=== PATIENT | female | born 1990 | race Caucasian/White ===

== ENCOUNTER 2016-12-09 11:50 | Outpatient (CLI) | payer MEDICAID ==
[2016-12-09] MEDS ORDERED: LACTATED RINGERS 500 ML IV ONE (15:19)
== END 2016-12-09 15:43 | disposition home or self-care (01) ==
LOC: LAB 11:50 → TRG 14:12 → LAB 15:43
PROVIDERS: ATTEND Advanced Practice Midwife
DX: O36.0130 Maternal care for anti-D [Rh] antibodies, third trimester, not applicable or unspecified (principal); Z3A.29 29 weeks gestation of pregnancy
CPT/HCPCS: 86850; 86900; 86901; 96372; J2790

== ENCOUNTER 2016-12-28 13:56 | Outpatient (CLI) | payer MEDICAID ==
[2016-12-28] MEDS ORDERED: LACTATED RINGERS 500 ML IV ONE ×2 (14:28→15:00)
[2016-12-28 15:02] LABS: Bacteria,Urine 1+ /HPF (Negative); Bilirubin,Urine NEG (Negative); Blood,Urine NEG (Negative); Ketones,Urine 80 mg/dL (Negative); Leukocyte Esterase,Urine NEG (Negative); Mucus,Urine 3+ /HPF; Nitrite,Urine NEG (Negative); Urobilinogen,Urine < 2.0 mg/dL (<2.0)
[2016-12-28 15:35] VITALS: BP 115/70
[2016-12-28 15:47] LABS: Basophils % (Auto) 0.8 % (0.0-1.8); Eosinophils % (Auto) 1.7 % (0.0-4.3); Hematocrit 29.4 % (30.3-42.9); Hemoglobin 9.9 gm/dl (10.1-14.3); Mean Corpuscular HGB Conc 34 % (30-34); Mean Corpuscular Hemoglobin 32 pg (28-32); Mean Corpuscular Volume 94 fl (79-97); Platelet Count 239 K/mm3 (140-440); Red Blood Count 3.13 M/mm3 (3.65-5.03); Red Cell Distribution Width 13.5 % (13.2-15.2); White Blood Count 7.5 K/mm3 (4.5-11.0)
[2016-12-28] MEDS ORDERED: ROBITUSSIN AC PO ONE (17:47)
== END 2016-12-28 18:20 | disposition home or self-care (01) ==
LOC: TRG 13:56
PROVIDERS: ATTEND Obstetrics & Gynecology
DX: O47.03 False labor before 37 completed weeks of gestation, third trimester (principal); Z3A.31 31 weeks gestation of pregnancy
CPT/HCPCS: 36415; 59025; 81001; 85025; 96360; 96361; J7120

== ENCOUNTER 2016-12-30 11:55 | Outpatient (CLI) | payer MEDICAID ==
[2016-12-30] MEDS ORDERED: LACTATED RINGERS 500 ML IV ONE (12:57)
[2016-12-30] MEDS ORDERED: LACTATED RINGERS 1,000 ML ONE (12:59)
[2016-12-30 14:06] VITALS: BP 105/57
[2016-12-30] MEDS ORDERED: CELESTONE SOLUSPAN IM ONE (15:27)
[2016-12-30 16:10] LABS: Bilirubin,Urine NEG (Negative); Blood,Urine NEG (Negative); Ketones,Urine 80 mg/dL (Negative); Leukocyte Esterase,Urine NEG (Negative); Mucus,Urine FEW /HPF; Nitrite,Urine NEG (Negative); Protein,Urine <15 mg/dL mg/dL (Negative); Urobilinogen,Urine < 2.0 mg/dL (<2.0)
== END 2016-12-30 15:50 | disposition home or self-care (01) ==
LOC: TRG 11:55
PROVIDERS: ATTEND Obstetrics & Gynecology
DX: O47.03 False labor before 37 completed weeks of gestation, third trimester (principal); Z3A.32 32 weeks gestation of pregnancy
CPT/HCPCS: 59025; 81001; 96372; J0702; J7120

== ENCOUNTER 2016-12-31 16:38 | Outpatient (CLI) | payer MEDICAID ==
[2016-12-31] MEDS ORDERED: CELESTONE SOLUSPAN IM ONE (16:44)
[2016-12-31] MEDS ORDERED: LACTATED RINGERS 500 ML IV ONE (16:45)
== END 2016-12-31 17:04 | disposition home or self-care (01) ==
LOC: TRG 16:38
PROVIDERS: ATTEND Obstetrics & Gynecology
DX: O47.03 False labor before 37 completed weeks of gestation, third trimester (principal); Z3A.32 32 weeks gestation of pregnancy
CPT/HCPCS: 96372; J7120

== ENCOUNTER 2017-01-01 17:41 | Outpatient (CLI) | payer MEDICAID ==
[2017-01-01 18:20] VITALS: BP 100/60
[2017-01-01] MEDS ORDERED: LACTATED RINGERS 500 ML IV ONE (19:33)
[2017-01-01] MEDS ORDERED: LACTATED RINGERS 1,000 ML ONE (19:42)
[2017-01-01 20:26] LABS: Bacteria,Urine 1+ /HPF (Negative); Bilirubin,Urine NEG (Negative); Blood,Urine NEG (Negative); Ketones,Urine NEG (Negative); Leukocyte Esterase,Urine NEG (Negative); Mucus,Urine FEW /HPF; Nitrite,Urine NEG (Negative); Protein,Urine <15 mg/dL mg/dL (Negative); RBC,Urine < 1.0 /HPF (0.0-6.0); Urobilinogen,Urine < 2.0 mg/dL (<2.0); WBC,Urine < 1.0 /HPF (0.0-6.0)
[2017-01-01] MEDS ORDERED: PROCARDIA*For Tocolysis only PO ONE (21:52)
--- NOTE | 2017-01-02 08:34 | Ultrasound Report ---
OB LIMITED INDICATION: Evaluate cervical length. COMPARISON: 07/10/2016 TECHNIQUE: Transabdominal grayscale ultrasound with Doppler interrogation. Gestation: Jiménez Position: Breech Placenta: Anterior Placental Grade: 0 Heart Rate: 164 BPM Cervical length: 1.5 cm (Normal > 3 cm)
== END 2017-01-01 22:05 | disposition home or self-care (01) ==
LOC: TRG 17:41 → LD 18:31 → UNDOADMIN 18:31 → TRG 22:05
PROVIDERS: ATTEND Obstetrics & Gynecology
DX: O60.03 Preterm labor without delivery, third trimester (principal); O36.8130 Decreased fetal movements, third trimester, not applicable or unspecified; Z3A.32 32 weeks gestation of pregnancy
CPT/HCPCS: 36415; 59025; 76815; 81001; 82731; 96360; J7120

== ENCOUNTER 2017-02-17 22:30 | Outpatient (CLI) | payer MEDICAID ==
[2017-02-17 23:10] VITALS: BP 129/83
--- NOTE | 2017-02-18 13:23 | Ultrasound Report ---
BIOPHYSICAL PROFILE: 02/17/17 22:30:00 CLINICAL: Well Being FINDINGS: The biophysical profile was scored as followin - breathing movements 2 - movements 2 - posture and tone 2 - Qualitative amniotic fluid volume 8 - TOTAL SCORE OF POSSIBLE 8 Heart Rate (bpm) = 135 IMPRESSION: Normal study
--- NOTE | 2017-02-18 13:26 | Ultrasound Report ---
OB ULTRASOUND LIMITED: 02/17/17 CLINICAL: well being. Leaking of fluid. FINDINGS: Gestation: Jiménez Position: Cephalic. Amniotic Fluid: Normal [place] = 15.5 cm Placenta: Anterior Placental Grade: I Heart Rate: 135 BPM IMPRESSION: Single live intrauterine fetus at 38 weeks based on clinical dating. Normal amniotic fluid.
== END 2017-02-17 23:59 | disposition home or self-care (01) ==
LOC: TRG 22:30
PROVIDERS: ATTEND Obstetrics & Gynecology
DX: O42.92 Full-term premature rupture of membranes, unspecified as to length of time between rupture and onset of labor (principal); O62.9 Abnormality of forces of labor, unspecified; Z3A.38 38 weeks gestation of pregnancy
CPT/HCPCS: 76815; 76819

== ENCOUNTER 2017-02-19 03:57 | Inpatient (IN) | payer MEDICAID ==
[2017-02-19] MEDS ORDERED: LACTATED RINGERS 1,000 ML ONE (04:38)
[2017-02-19] MEDS ORDERED: POLYCILLIN/NS 2 GM/100 ML 2 GM/100 ML BAG IV ONE ×2 (04:38→04:40)
[2017-02-19] MEDS ORDERED: XYLOCAINE 2% INFILTRATI ONE (04:40)
[2017-02-19] MEDS ORDERED: BRETHINE SUB-Q PRN (04:40)
[2017-02-19] MEDS ORDERED: MINERAL OIL PO PRN (04:40)
[2017-02-19] MEDS ORDERED: BRETHINE IVP PRN (04:40)
[2017-02-19] MEDS ORDERED: ePHEDrine SULFATE IV PRN (04:40)
[2017-02-19] MEDS ORDERED: LACTATED RINGERS 1,000 ML IV SCH (05:00)
[2017-02-19] MEDS ORDERED: PITOCin/NS 20 UNIT/1000ML DRIP 20 UNITS/1,000 ML BAG IV SCH (05:00)
[2017-02-19] MEDS: STADOL IV PRN ×2 (05:33→08:56)
[2017-02-19 05:42] LABS: Hematocrit 36.5 % (30.3-42.9); Hemoglobin 12.4 gm/dl (10.1-14.3); Mean Corpuscular HGB Conc 34 % (30-34); Mean Corpuscular Hemoglobin 32 pg (28-32); Mean Corpuscular Volume 94 fl (79-97); Platelet Count 212 K/mm3 (140-440); Red Blood Count 3.89 M/mm3 (3.65-5.03); Red Cell Distribution Width 14.7 % (13.2-15.2)
[2017-02-19] MEDS ORDERED: TYLENOL ONE (05:56)
[2017-02-19] MEDS ORDERED: TYLENOL PO ONE (06:30)
[2017-02-19 06:55] LABS: Alanine Aminotransferase 9 units/L (7-56); Lactate Dehydrogenase 160 units/L (91-180); Uric Acid 6.2 mg/dL (3.5-7.6)
[2017-02-19] MEDS ORDERED: POLYCILLIN/NS 1 GM/50 ML 1 GM/50 ML BAG IV SCH (09:00)
[2017-02-19 09:16] LABS: Bilirubin,Urine NEG (Negative); Blood,Urine LG (Negative); Ketones,Urine NEG (Negative); Leukocyte Esterase,Urine MOD (Negative); Nitrite,Urine NEG (Negative); Protein,Urine <15 mg/dL mg/dL (Negative); RBC,Urine < 1.0 /HPF (0.0-6.0); Urobilinogen,Urine < 2.0 mg/dL (<2.0)
[2017-02-19] MEDS: PITOCin/NS 30 UNIT/500ML 30 UNITS/500 ML BAG IV SCH ×3 (11:06→12:37)
--- NOTE | 2017-02-19 11:18 | History and Physical Report ---
History of Present Illness Date of examination: 02/19/17 Date of admission: 02/19/17 05:02 Chief complaint: Intense labor Pains and My water broke History of present illness: Early entry to care, Co-managed with [facility] due to poor weight gain, Smoker, and Short Cx. RH neg (received Rhogam). Past History Past Medical History: no pertinent history Past Surgical History: no surgical history [employer] History: herpes Family/Genetic History: other (Hyperthyroidism: mother, son) Social history: single - Obstetrical History Expected Date of Delivery: 03/02/17 Actual Gestation: 38 Week(s) 3 Day(s) : 4 Para: 1 Hx # Term Pregnancies: 1 Spontaneous Abortions: 2 Number of Living Children: 1 #1 Infant Gender: Female year: Birthweight: 2.892 kg Method of Delivery: Vaginal Gestational age at delivery: Complications: none Medications and Allergies Allergies Allergy/AdvReac Type Severity Reaction Status Date / Time No Known Allergies Allergy Verified 02/04/16 12:27 Home Medications Medication Instructions Recorded Confirmed Last Taken Type Ondansetron [Zofran TAB] 4 mg PO Q8HR PRN #14 tablet 07/10/16 02/19/17 02/18/17 17:00 Rx Pnv95/Ferrous Fumarate/FA 1 tab PO DAILY 07/10/16 02/19/17 02/18/17 17:00 History [ Caplet] Pnv95/Ferrous Fumarate/FA 1 each PO QDAY #31 tablet 07/10/16 02/19/17 02/18/17 17:00 Rx [Prenavite Tablet] Acetaminophen/Codeine [Tylenol 1 tab PO Q6H PRN #10 tab 07/18/16 02/19/17 Unknown Rx /Codeine # 3 tab] Penicillin Vk [Veetids TAB] 250 mg PO QID #40 tablet 07/18/16 02/19/17 Unknown Rx Active Meds: Active Medications Butorphanol Tartrate (Stadol) 2 mg IV Q2H PRN PRN Reason: Pain , Severe (7-10) Last Admin: 02/19/17 08:56 Dose: 2 mg Lactated Ringer's (Lactated Ringers) 1,000 mls @ 125 mls/hr IV DIRECT DAVEY Last Admin: 02/19/17 05:30 Dose: 125 mls/hr Oxytocin/Sodium Chloride (Pitocin/Ns 20 Unit/1000ml Drip) 20 units in 1,000 mls @ 125 mls/hr IV DIRECT DAVEY Ampicillin Sodium (Polycillin/Ns 1 Gm/50 Ml) 1 gm in 50 mls @ 100 mls/hr IV Q4H DAVEY PRN Reason: Protocol Last Admin: 02/19/17 09:00 Dose: 100 mls/hr Oxytocin/Sodium Chloride (Pitocin/Ns 30 Unit/500ml) 30 units in 500 mls @ 2 mls /hr IV TITR DAVEY; 2 MILLIUNITS/MIN PRN Reason: Protocol Last Admin: 02/19/17 11:06 Dose: 4 milliunits/min, 4 mls/hr Mineral Oil (Mineral Oil) 30 ml PO QHS PRN PRN Reason: Constipation Review of Systems All systems: negative - Vital Signs Vital signs: Vital Signs BP 183/103 02/19/17 03:57 Temp Pulse Resp BP Pulse Ox 98.9 F 82 18 152/86 02/19/17 08:57 02/19/17 11:07 02/19/17 08:57 02/19/17 11:07 - Physical Exam Breasts: Positive: normal Cardiovascular: Regular rate Lungs: Positive: Clear to auscultation, Normal air movement Abdomen: Positive: normal appearance, soft, normal bowel sounds Genitourinary (Female): Positive: normal external genitalia, normal perenium Uterus: Positive: enlarged - Obstetrical FHR: category 1 Uterine Contraction Monitor Mode: External Cervical Dilatation: 7 Cervical Effacement Percentage: 100 station: 0 Uterine Contraction Frequency (min): 4-7 Uterine Contraction Pattern: Regular Uterine Tone Measurement Phase: Contraction Uterine Contraction Intensity: Moderate Results Result Diagrams: 02/19/17 04:50 02/19/17 06:12 Abnormal lab results 02/19/17 02/19/17 02/19/17 Range/Units 04:50 06:12 08:30 WBC 17.0 H (4.5-11.0) K/mm3 Creatinine 0.4 L (0.7-1.2) mg/dL Ur Specific [place] 1.002 L (1.003-1.030) All other labs normal. Assessment and Plan A: IUP @ 38 3/7 Weeks Category I Tracing Active Labor GBS Positive P: Admit to L&D per routine orders Pitocin Augmentation GBs Prophylaxis
[2017-02-19] MEDS ORDERED: MINERAL OIL ONE (11:59)
[2017-02-19] MEDS ORDERED: SUBLIMAZE ONE (12:26)
[2017-02-19] MEDS ORDERED: SUBLIMAZE IV ONE (12:31)
[2017-02-19] MEDS ORDERED: MINERAL OIL TOPICAL LIGHT TP PRN (12:54)
[2017-02-19] MEDS ORDERED: CYTOTEC ONE (13:13)
[2017-02-19] MEDS ORDERED: CYTOTEC PR ONE (13:33)
[2017-02-19] MEDS ORDERED: MILK OF MAGNESIA PO PRN (13:34)
[2017-02-19] MEDS ORDERED: LANSINOH TP PRN (13:34)
[2017-02-19] MEDS ORDERED: ZOFRAN IV PRN (13:34)
[2017-02-19] MEDS ORDERED: PHENERGAN PR PRN (13:34)
[2017-02-19] MEDS ORDERED: DULCOLAX PR PRN (13:34)
[2017-02-19] MEDS ORDERED: TUCKS PAD TP PRN (13:34)
[2017-02-19] MEDS ORDERED: BENADRYL PO PRN (13:34)
[2017-02-19] MEDS ORDERED: DERMOPLAST TP PRN (13:34)
[2017-02-19] MEDS ORDERED: PHENERGAN PO PRN (13:34)
--- NOTE | 2017-02-19 13:43 | Procedure Note ---
OB Delivery Note - Delivery Date of Delivery: 02/19/17 (1302) Surgeon: MARCOS PRECIADO Estimated blood loss: other (350) - Vaginal Delivery presentation: vertex Delivery position: OA Delivery induction: none Delivery augmentation: pitocin Delivery monitor: external FHT, external uterine Route of delivery: Delivery placenta: manual Delivery cord: 3 umbilical vessels Episiotomy: none Delivery laceration: none Anesthesia: none Delivery comments: of a live 6'1 female infant over a intact perineum under IV pain control with Apgars of 8 and 9 at 1302 on 02/19/2017. Infant directly to maternal abd/ chest, skin to skin contact. Very short cord. Manual extraction of placenta with one attempt due to Placenta delivering in segments with Starr side presenting at 1320. Upon manual exploration, the uterus palpates empty. Fundus is firm and midline located 4 below the U. Lochia is scant. Delayed cord clamping and cutting. Cord cut by the father of the baby. GBS Prophylaxis x2. - A at 1 minute: 8 at 5 minutes: 9 Infant Gender: Female (6'1)
[2017-02-19] MEDS ORDERED: SODIUM CHLORIDE FLUSH SYRINGE 10 ML IV NR (14:00)
[2017-02-19] MEDS: NORCO 5/325 PO PRN ×2 (16:18→22:33)
[2017-02-19] MEDS: MOTRIN PO SCH (16:18)
[2017-02-20] MEDS: MOTRIN PO SCH ×3 (02:05→17:42)
[2017-02-20 04:34] LABS: Hematocrit 30.3 % (30.3-42.9)
[2017-02-20] MEDS: NORCO 5/325 PO PRN ×3 (05:47→20:11)
[2017-02-20] MEDS ORDERED: BOOSTRIX IM ONE (06:00)
[2017-02-20] MEDS ORDERED: PRENATAL VITAMIN PO SCH (10:00)
--- NOTE | 2017-02-20 10:17 | Progress Note ---
Assessment and Plan PPD #1 - stable P: Discharge home today Subjective - Subjective Date of service: 02/20/17 Principal diagnosis: Patient reports: appetite normal [place]: doing well Objective - Vital Signs Latest vital signs: Vital Signs Temp Pulse Pulse Pulse Resp BP BP 02/20/17 08:48 98.1 F 76 20 02/19/17 20:00 98.3 F 71 18 127/71 02/19/17 15:56 98.9 F 72 20 129/66 02/19/17 14:34 85 159/68 02/19/17 14:30 85 18 159/68 02/19/17 14:19 81 171/75 02/19/17 14:10 83 18 155/78 02/19/17 14:09 83 155/78 02/19/17 13:50 86 18 155/80 02/19/17 13:49 86 155/80 02/19/17 13:35 81 18 150/78 02/19/17 13:34 81 150/78 02/19/17 11:35 76 140/85 02/19/17 11:07 82 152/86 BP 02/20/17 08:48 124/74 02/19/17 20:00 02/19/17 15:56 02/19/17 14:34 02/19/17 14:30 02/19/17 14:19 02/19/17 14:10 02/19/17 14:09 02/19/17 13:50 02/19/17 13:49 02/19/17 13:35 02/19/17 13:34 02/19/17 11:35 02/19/17 11:07 Intake and Output 02/19/17 02/20/17 02/20/17 22:59 06:59 14:59 Intake Total 480 260 Output Total 400 Balance 80 260 Intake: Intake, Free Water 480 260 Output: Urine 400 Void 400 Other: Total, Output Amount 400 # Voids Void 1 2 - Exam Breasts: Present: deferred Cardiovascular: Present: Regular rate Lungs: Present: Clear to auscultation Abdomen: Present: soft Vulva: both: normal Uterus: Present: fundal height below umbilicus Extremities: Present: normal Deep Tendon Reflex Grade: Normal +2 - Labs Labs: Abnormal lab results 02/20/17 Range/Units 03:53 Hgb 10.0 L (10.1-14.3) gm/dl
--- NOTE | 2017-02-20 10:18 | Discharge Summary ---
Providers - Providers Date of Admission: 02/19/17 05:02 Date of discharge: 02/20/17 Attending physician: RUBÉN WILSON MD Primary care physician: RUBÉN WILSON MD Hospitalization Reason for admission: active labor, rupture of membranes Delivery: Episiotomy: none Laceration: none Other procedures: none complications: none Discharge diagnosis: IUP at term delivered baby: female Condition at discharge: Good Disposition: DISCHARGED TO HOME OR SELFCARE Plan - Provider Discharge Summary Activity: routine, no sex for 6 weeks, no strenuous exercise Diet: routine Additional instructions: [] Smoking cessation referral if applicable(refer to patient education folder for contact #) [] Refer to [facility]'s [facility] Booklet Call your doctor immediately for: * Fever > 100.5 * Heavy vaginal bleeding ( >1 pad per hour) * Severe persistent headache * Shortness of breath * Reddened, hot, painful area to leg or breast * Drainage or odor from incision. * Keep incision clean and dry at all times and follow doctor's instructions regarding bathing/showering - Follow up plan Follow up: [facility] [Provider Group] - 6 Weeks
[2017-02-20] MEDS ORDERED: FLUARIX QUAD 2016-2017(36 MOS+) IM ONE (12:00)
[2017-02-21] MEDS: MOTRIN PO SCH ×2 (00:20→06:15)
[2017-02-21] MEDS: NORCO 5/325 PO PRN (03:07)
[2017-02-21 06:43] VITALS: BP 143/87
== END 2017-02-21 07:30 | disposition home or self-care (01) | DRG 775 ==
LOC: TRG 03:57 → LD 05:02 → OB 15:59
PROVIDERS: ADMIT Obstetrics & Gynecology; ATTEND Obstetrics & Gynecology
PROC: 10E0XZZ Delivery of Products of Conception, External Approach (ICD-10-PCS; principal; 2017-02-19)
PROC: 30233S1 Transfusion of Nonautologous Globulin into Peripheral Vein, Percutaneous Approach (ICD-10-PCS; 2017-02-19)
DX: O99.824 Streptococcus B carrier state complicating childbirth (principal); O26.873 Cervical shortening, third trimester; O99.334 Smoking (tobacco) complicating childbirth; F17.200 Nicotine dependence, unspecified, uncomplicated; Z3A.38 38 weeks gestation of pregnancy; Z37.0 Single live birth
CPT/HCPCS: 36415; 81001; 82565; 83615; 84450; 84460; 84550; 85014; 85018; 85027; 85460; 85461; 86850; 86900; 86901; 90471; 90686; 90715; 99211; A6250; G0008; G0463; J0290; J0595; J2590; J2790; J3010; J7120

== ENCOUNTER 2017-10-27 23:03 | Emergency (ER) | payer SELFPAY ==
[2017-10-27] MEDS ORDERED: MOTRIN ONE (23:38)
[2017-10-27] MEDS ORDERED: MOTRIN PO ONE (23:39)
[2017-10-27 23:41] VITALS: BP 120/80
--- NOTE | 2017-10-28 01:26 | Emergency Department Report ---
ED Laceration HPI - HPI Chief Complaint: Wound/Laceration Stated Complaint: LAC TO RT ELBOW Time Seen by Provider: 10/28/17 00:53 Occurred When: Yesterday Location: Upper Extremity (Rt arm beside elbow) Severity: mild (or/10) Tetanus Status: Up to Date Laceration Symptoms: Yes Pain (right arm beside elbow), No Foreign Body Sensation, No Numbness, No Weakness Other History: Patient here reports that she tripped and fell off steps and injured her right arm beside her elbow.she said she had a cut in its bleeding. Tetanus shot is up-to-date. Pain 4-10 and no medication taken. Pain is worse with movement better with resting. Patient acting very aggressive and appears to be anxious. She denies street to any other parts of her body. She says she slipped and just landed on her elbow. Denies any swelling to elbow. Denies any numbness or tingling. ED Review of Systems ROS: Stated complaint: LAC TO RT ELBOW Other details as noted in HPI Comment: All other systems reviewed and negative Constitutional: no symptoms reported Respiratory: no symptoms reported Cardiovascular: denies: chest pain, palpitations, dyspnea on exertion, orthopnea , edema, syncope, paroxysmal nocturnal dyspnea Gastrointestinal: denies: abdominal pain, nausea, vomiting, diarrhea, constipation Musculoskeletal: arthralgia. denies: back pain, joint swelling, myalgia Skin: other ED Past Medical Hx - Past Medical History Previous Medical History?: No Hx Hypertension: No Hx Congestive Heart Failure: No Hx Diabetes: No Hx Deep Vein Thrombosis: No Hx Renal Disease: No Hx Sickle Cell Disease: No Hx Seizures: No Hx Asthma: No Hx COPD: No Hx HIV: No - Surgical History Past Surgical History?: Yes Additional Surgical History: D&C - Family History Family history: hypertension - Social History Smoking Status: Current Every Day Smoker Substance Use Type: Alcohol - Medications Home Medications: Home Medications Medication Instructions Recorded Confirmed Last Taken Type Ondansetron [Zofran TAB] 4 mg PO Q8HR PRN #14 tablet 07/10/16 02/19/17 02/18/17 17:00 Rx Pnv No.95/Ferrous Fum/Folic AC 1 tab PO DAILY 07/10/16 02/19/17 02/18/17 17:00 History [ Caplet] Pnv No.95/Ferrous Fum/Folic AC 1 each PO QDAY #31 tablet 07/10/16 02/19/1702/18 17:00 Rx [Prenavite Tablet] Acetaminophen/Codeine [Tylenol 1 tab PO Q6H PRN #10 tab 07/18/16 02/19/17 Unknown Rx /Codeine # 3 tab] Penicillin Vk [Veetids TAB] 250 mg PO QID #40 tablet 07/18/16 02/19/17 Unknown Rx Cephalexin [Keflex] 500 mg PO Q8HR 5 Days #15 cap 10/28/17 Unknown Rx Ibuprofen [Motrin] 600 mg PO Q8H PRN 5 Days #15 tablet 10/28/17 Unknown Rx Laceration Physical Exam - Exam General: Vital signs noted. No distress. Alert and acting appropriately. This is a 27-year-old female well-nourished well-developed and nontoxic in appearance. Patient is very anxious. Lungs: Auscultated bilaterally, no rhonchi wheezes or rales. Head: Normocephalic, atraumatic. No abrasion, laceration or contusion. Neck: Full range of motion, no C-spine tenderness. CV: S1, S2. Regular rate rhythm Psych: Anxiety, mild. Laceration Location: Upper Extremity (right arm beside elbow posteriorly) Full Body Front + Back: 1 - TD vaccine is up-to-date Distally ,Right posterior arm 4 cm laceration. Minimal bleeding. Palpated around edges. Laceration Exam: Yes Normal Distal CMS, No Foreign Body, No Exposed Tendon, Vessel, or Nerve, No Tendon Injury ED Course Vital Signs 10/27/17 23:27 Temperature 98.6 F Pulse Rate 120 H Respiratory 20 Rate Blood Pressure 120/80 [Right] O2 Sat by Pulse 97 Oximetry Vital Signs 10/27/17 10/28/17 23:27 02:57 Temperature 98.6 F Pulse Rate 120 H 100 H Respiratory 20 Rate Blood Pressure 120/80 [Right] O2 Sat by Pulse 97 Oximetry - Reevaluation(s) Reevaluation #1: 10/28/17 03:05 Patient given Motrin 800 mg emergency room for pain to right arm after falling. The procedure note for laceration repair. - Laceration /Wound Repair Right Distal Arm Wound Location: upper extremity (RT arm posteriorly) Wound Length (cm): 4 Wound's Depth, Shape: linear Wound Explored: no foreign body removed Irrigated w/ Saline (ccs): 500 Betadine Prep?: Yes Anesthesia: 0.5% Sensorcaine (marcaine) Volume Anesthetic (ccs): 2 Wound Debrided: moderate Wound Repaired With: sutures Suture Size/Type: 3:0, proline Number of Sutures: 8 Layer Closure?: No Sterile Dressing Applied?: Yes ED Medical Decision Making - Medical Decision Making ED course: Post fall with injury to distal rt arm. Patient with 4 cm laceration which was repaired with Prolene sutures. Please refer to procedure note for detailed on laceration repair. pt with mild anxiety that has resolved since her laceration is repaired . Patient discharged home in stable condition with prescription for Motrin and Keflex and to follow up with her primary care in 5 days and return to emergency room or urgent care to have stitches removed in 7-10 days. She voiced understanding of discharge instruction and treatment plan discharge home with her family in stable condition. Critical care attestation.: If time is entered above; I have spent that time in minutes in the direct care of this critically ill patient, excluding procedure time. ED Disposition Clinical Impression: Laceration of upper arm without complication Qualifiers: Encounter type: initial encounter Laterality: right Qualified Code(s): S41.111A - Laceration without foreign body of right upper arm, initial encounter Arthralgia of upper arm Qualifiers: Laterality: right Qualified Code(s): M25.521 - Pain in right elbow Disposition: DC-01 TO HOME OR SELFCARE Is pt being admited?: No Does the pt Need Aspirin: No Condition: Stable Instructions: Suture Care (ED), Laceration (ED), Arthralgia (ED) Additional Instructions: Take antibiotic as prescribed Follow-up with your primary care physician in 5days she do not have a primary care physician follow-up with [facility] Keep affected area clean and dry. Return to the emergency room or urgent care to have sutures removed in 7-10 days Prescriptions: Cephalexin [Keflex] 500 mg PO Q8HR 5 Days #15 cap Ibuprofen [Motrin] 600 mg PO Q8H PRN 5 Days #15 tablet PRN Reason: Pain Referrals: [facility] [Outside] - 11/01/17 return to, emergency room are urgent care [Other] - 7-10 days Forms: Work/School Release Form(ED), Accompanied Note
[2017-10-28] MEDS ORDERED: MARCAINE 0.5% INFILTRATI ONE (01:27)
[2017-10-28] MEDS ORDERED: NACL 0.9% IR ONE (01:27)
== END 2017-10-28 03:21 | disposition home or self-care (01) ==
LOC: ED 23:03
DX: S41.111A Laceration without foreign body of right upper arm, initial encounter (principal); F17.200 Nicotine dependence, unspecified, uncomplicated; W01.0XXA Fall on same level from slipping, tripping and stumbling without subsequent striking against object, initial encounter; Y93.89 Activity, other specified; Y92.89 Other specified places as the place of occurrence of the external cause; Y99.8 Other external cause status

== ENCOUNTER 2018-01-16 11:03 | Emergency (ER) | payer MEDICAID ==
[2018-01-16 11:11] VITALS: BP 103/53
[2018-01-16 11:48] LABS: BUN/Creatinine Ratio 10; Blood Urea Nitrogen 4 mg/dL (7-17); Hematocrit 37.4 % (30.3-42.9); Hemoglobin 12.5 gm/dl (10.1-14.3); Hemolysis Index 3; Mean Corpuscular HGB Conc 34 % (30-34); Mean Corpuscular Hemoglobin 29 pg (28-32); Mean Corpuscular Volume 87 fl (79-97); Platelet Count 263 K/mm3 (140-440); Red Cell Distribution Width 16.4 % (13.2-15.2)
[2018-01-16 11:58] LABS: Bilirubin,Urine NEG (Negative); Blood,Urine NEG (Negative); Color,Urine Yellow (Yellow); Mucus,Urine FEW /HPF; Protein,Urine <15 mg/dL mg/dL (Negative); Urobilinogen,Urine < 2.0 mg/dL (<2.0)
--- NOTE | 2018-01-16 13:14 | Ultrasound Report ---
FINAL REPORT EXAM: US OB TRANSVAGINAL HISTORY: 12weeks preg with vag bleed/pelvic pain TECHNIQUE: Ultrasound evaluation of the gravid uterus PRIORS: 07/10/2016 FINDINGS: A gestational sac is present in the endometrial cavity containing a yolk sac and pole. viability is documented with evidence of cardiac activity. pole crown-rump length: 34.3 mm Gestational Sac Size: 48.4 mm heart rate: 169 beats per minute Average estimated gestational age by ultrasound 10 weeks 3 days Estimated delivery date: 08/11/2018 The uterine echotexture is homogenous and without evidence of mass. Closed cervix. No evidence of left solid ovarian mass. Nonspecific small smoothly marginated solid appearing nodule in right ovary measures 2 cm and may be a corpus luteum. The adnexa are normal. There is no cul-de-sac free fluid. IMPRESSION: Single viable 1st trimester intrauterine with the above parameters Nonspecific smoothly marginated solid-appearing nodule in right ovary may be a corpus luteum
--- NOTE | 2018-01-16 13:18 | Ultrasound Report ---
FINAL REPORT EXAM: US OB < = 14 WEEKS FETUS, TRANSABDOMINAL HISTORY: 12weeks preg with vag bleed/pelvic pain TECHNIQUE: Ultrasound evaluation of the gravid uterus PRIORS: Transvaginal pelvic ultrasound 01/16/2018 FINDINGS: A gestational sac is present in the endometrial cavity containing a yolk sac and pole. viability is documented with evidence of cardiac activity. pole crown-rump length: 34.3 mm Gestational Sac Size: 48.4 mm heart rate: 169 beats per minute Average estimated gestational age by ultrasound 10 weeks 3 days Estimated delivery date: 08/11/2018 The uterine echotexture is homogenous and without evidence of mass. Closed cervix. No evidence of solid ovarian mass. The adnexa are normal. There is no cul-de-sac free fluid. IMPRESSION: Single viable 1st trimester intrauterine with the above parameters
[2018-01-16] MEDS ORDERED: TYLENOL PO ONE (13:41)
--- NOTE | 2018-01-16 14:10 | Emergency Department Report ---
ED Female HPI - General Chief complaint: Vaginal Bleeding Stated complaint: 12 WKS PREG. VAG BLEEDING Time Seen by Provider: 01/16/18 13:34 Source: patient Mode of arrival: Ambulatory Limitations: No Limitations - History of Present Illness Initial comments: This is a 27-year-old female nontoxic, well nourished in appearance, no acute signs of distress presents to the ED with c/o of vaginal spotting that occurred 2 days ago. Patient stated she is currently 12 weeks . Patient denies any heavy vaginal bleeding, abdominal pain, chest pain, short of breath, fever, chills, nausea, vomiting. Patient denies any abdominal pain or cramping. She denies any dysuria, polyuria. Patient denies any allergies or significant past medical history. MD Complaint: vaginal bleeding -: days(s) (2) Severity scale (0 -10): 0 Improves with: none Worsens with: none Are you Now?: Yes Associated Symptoms: vaginal bleeding. denies: vaginal discharge, abdominal pain, nausea/vomiting, fever/chills, headaches, loss of appetite, dysuria, hematuria, rash, seizure, shortness of breath, syncope, weakness - Related Data Home Medications Medication Instructions Recorded Confirmed Last Taken Pnv No.95/Ferrous Fum/Folic AC 1 tab PO DAILY 07/10/16 02/19/17 02/18/17 17:00 [ Caplet] Previous Rx's Medication Instructions Recorded Last Taken Type Ondansetron [Zofran TAB] 4 mg PO Q8HR PRN #14 tablet 07/10/16 02/18/17 17:00 Rx Pnv No.95/Ferrous Fum/Folic AC 1 each PO QDAY #31 tablet 07/10/16 02/18/17 17: 00 Rx [Prenavite Tablet] Acetaminophen/Codeine [Tylenol 1 tab PO Q6H PRN #10 tab 07/18/16 Unknown Rx /Codeine # 3 tab] Penicillin Vk [Veetids TAB] 250 mg PO QID #40 tablet 07/18/16 Unknown Rx Cephalexin [Keflex] 500 mg PO Q8HR 5 Days #15 cap 10/28/17 Unknown Rx Ibuprofen [Motrin] 600 mg PO Q8H PRN 5 Days #15 tablet 10/28/17 Unknown Rx Metoclopramide [Reglan] 10 mg PO TID PRN #20 tab 01/16/18 Unknown Rx Allergies Allergy/AdvReac Type Severity Reaction Status Date / Time No Known Allergies Allergy Verified 02/04/16 12:27 ED Review of Systems ROS: Stated complaint: 12 WKS PREG. VAG BLEEDING Other details as noted in HPI Constitutional: denies: chills, fever Eyes: denies: eye pain, eye discharge, vision change ENT: denies: ear pain, throat pain Respiratory: denies: cough, shortness of breath, wheezing Cardiovascular: denies: chest pain, palpitations Endocrine: no symptoms reported Gastrointestinal: denies: abdominal pain, nausea, diarrhea Genitourinary: denies: urgency, dysuria, discharge Musculoskeletal: denies: back pain, joint swelling, arthralgia Skin: denies: rash, lesions Neurological: denies: headache, weakness, paresthesias Psychiatric: denies: anxiety, depression Hematological/Lymphatic: denies: easy bleeding, easy bruising ED Past Medical Hx - Past Medical History Hx Hypertension: No Hx Congestive Heart Failure: No Hx Diabetes: No Hx Deep Vein Thrombosis: No Hx Renal Disease: No Hx Sickle Cell Disease: No Hx Seizures: No Hx Asthma: No Hx COPD: No Hx HIV: No - Surgical History Additional Surgical History: D&C - Social History Smoking Status: Current Every Day Smoker Substance Use Type: None - Medications Home Medications: Home Medications Medication Instructions Recorded Confirmed Last Taken Type Ondansetron [Zofran TAB] 4 mg PO Q8HR PRN #14 tablet 07/10/16 02/19/17 02/18/17 17:00 Rx Pnv No.95/Ferrous Fum/Folic AC 1 tab PO DAILY 07/10/16 02/19/17 02/18/17 17:00 History [ Caplet] Pnv No.95/Ferrous Fum/Folic AC 1 each PO QDAY #31 tablet 07/10/16 02/19/1702/18 17:00 Rx [Prenavite Tablet] Acetaminophen/Codeine [Tylenol 1 tab PO Q6H PRN #10 tab 07/18/16 02/19/17 Unknown Rx /Codeine # 3 tab] Penicillin Vk [Veetids TAB] 250 mg PO QID #40 tablet 07/18/16 02/19/17 Unknown Rx Cephalexin [Keflex] 500 mg PO Q8HR 5 Days #15 cap 10/28/17 Unknown Rx Ibuprofen [Motrin] 600 mg PO Q8H PRN 5 Days #15 tablet 10/28/17 Unknown Rx Metoclopramide [Reglan] 10 mg PO TID PRN #20 tab 01/16/18 Unknown Rx ED Physical Exam - General Limitations: No Limitations General appearance: alert, in no apparent distress - Head Head exam: Present: atraumatic, normocephalic - Eye Eye exam: Present: normal appearance - ENT ENT exam: Present: mucous membranes moist - Neck Neck exam: Present: normal inspection - Respiratory Respiratory exam: Present: normal lung sounds bilaterally. Absent: respiratory distress, wheezes, rales, rhonchi, stridor, chest wall tenderness, accessory muscle use, decreased breath sounds, prolonged expiratory - Cardiovascular Cardiovascular Exam: Present: regular rate, normal rhythm, normal heart sounds. Absent: bradycardia, tachycardia, irregular rhythm, systolic murmur, diastolic murmur, rubs, gallop - GI/Abdominal GI/Abdominal exam: Present: soft, normal bowel sounds. Absent: distended, tenderness, guarding, rebound, rigid, diminished bowel sounds - Rectal Rectal exam: Present: deferred - Extremities Exam Extremities exam: Present: normal inspection, full ROM, normal capillary refill. Absent: tenderness, pedal edema, joint swelling, calf tenderness - Back Exam Back exam: Present: normal inspection, full ROM. Absent: tenderness, CVA tenderness (R), CVA tenderness (L), muscle spasm, paraspinal tenderness, vertebral tenderness, rash noted - Neurological Exam Neurological exam: Present: alert, oriented X3, CN II-XII intact, normal gait, reflexes normal - Psychiatric Psychiatric exam: Present: normal affect, normal mood - Skin Skin exam: Present: warm, dry, intact, normal color. Absent: rash ED Course Vital Signs 01/16/18 11:07 Temperature 97.8 F Pulse Rate 74 Respiratory 18 Rate Blood Pressure 103/53 O2 Sat by Pulse 100 Oximetry - Reevaluation(s) Reevaluation #1: 01/16/18 14:09 Patient is speaking in full sentences with no signs of distress noted. ED Medical Decision Making - Lab Data Result diagrams: 01/16/18 11:13 01/16/18 11:13 - Medical Decision Making This is a 27-year-old female that presents with vaginal spotting. Patient stable was examined by me and Dr. Rebollar. Labs within normal limits. Ultrasound within normal limits and heartbeat of 169. Patient was notified of the results with normal by the patient. Patient patient does have a PET WALKER appointment tomorrow and I instruct the patient to keep that appointment and follow-up. At time of discharge, the patient does not seem toxic or ill in appearance. No acute signs of distress noted. Patient agrees to discharge treatment plan of care. No further questions noted by the patient. Critical care attestation.: If time is entered above; I have spent that time in minutes in the direct care of this critically ill patient, excluding procedure time. ED Disposition Clinical Impression: Vaginal bleeding Qualifiers: Weeks of gestation: 10 weeks Qualified Code(s): Z3A.10 - 10 weeks gestation of Disposition: DC- TO HOME OR SELFCARE Is pt being admited?: No Does the pt Need Aspirin: No Condition: Stable Instructions: (ED), Metoclopramide (By mouth) Additional Instructions: Follow-up with a PET WALKER tomorrow or if symptoms worsen and continue return to emergency room as soon as possible. Prescriptions: Metoclopramide [Reglan] 10 mg PO TID PRN #20 tab PRN Reason: Nausea Referrals: PRIMARY CARE, [Primary Care Provider] - 3-5 Days RACHEL BERG MD [Staff Physician] - 3-5 Days [facility] [Outside] - 3-5 Days [facility] [Outside] - 3-5 Days Forms: Work/School Release Form(ED)
--- NOTE | 2018-01-16 17:33 | Emergency Department Report ---
Chief Complaint: Vaginal Bleeding Stated Complaint: 12 WKS PREG. VAG BLEEDING Time Seen by Provider: 01/16/18 13:34 - HPI History of Present Illness: The patient is 27-year-old female , who presents for evaluation of abdominal pain and vaginal bleeding. The patient reports 3 days of mild crampy lower abdominal pain associated with mild intermittent vaginal bleeding. The patient denies fever, chills, night sweats, diarrhea, blood in the stool, dark tarry stool, dysuria, hematuria, flank pain, genital discharge, inability to pass flatus. - Exam Vital Signs: Vital Signs 01/16/18 11:07 Temperature 97.8 F Pulse Rate 74 Respiratory 18 Rate Blood Pressure 103/53 O2 Sat by Pulse 100 Oximetry MSE screening note: Focused history and physical exam performed. Due to findings the following was ordered: ED Medical Decision Making - Lab Data Result diagrams: 01/16/18 11:13 01/16/18 11:13 ED Disposition for MSE Clinical Impression: Vaginal bleeding Qualifiers: Weeks of gestation: 10 weeks Qualified Code(s): Z3A.10 - 10 weeks gestation of Disposition: DC-01 TO HOME OR SELFCARE Condition: Stable Instructions: Metoclopramide (By mouth), (ED) Additional Instructions: Follow-up with a RESISTANCE WELDER tomorrow or if symptoms worsen and continue return to emergency room as soon as possible. Prescriptions: Metoclopramide [Reglan] 10 mg PO TID PRN #20 tab PRN Reason: Nausea Referrals: [facility] [Outside] - 3-5 Days [facility] [Outside] - 3-5 Days RACHEL BERG MD [Staff Physician] - 3-5 Days [facility] [Primary Care Provider] - 3-5 Days Forms: Work/School Release Form(ED)
== END 2018-01-16 14:19 | disposition home or self-care (01) ==
LOC: ED 11:03
DX: O46.91 Antepartum hemorrhage, unspecified, first trimester (principal); Z3A.10 10 weeks gestation of pregnancy; O99.331 Smoking (tobacco) complicating pregnancy, first trimester
CPT/HCPCS: 36415; 76801; 76817; 80048; 81001; 84702; 85027; 99284

== ENCOUNTER 2018-01-20 04:48 | Emergency (ER) | payer MEDICAID ==
[2018-01-20 05:15] LABS: Basophils # (Auto) 0.1 K/mm3 (0.0-0.1); Basophils % (Auto) 0.8 % (0.0-1.8); Eosinophils % (Auto) 0.2 % (0.0-4.3); Hematocrit 36.8 % (30.3-42.9); Hemoglobin 12.3 gm/dl (10.1-14.3); Lymphocytes # (Auto) 2.9 K/mm3 (1.2-5.4); Lymphocytes % (Auto) 28.2 % (13.4-35.0); Mean Corpuscular HGB Conc 34 % (30-34); Mean Corpuscular Hemoglobin 29 pg (28-32); Mean Corpuscular Volume 87 fl (79-97); Monocytes # (Auto) 0.4 K/mm3 (0.0-0.8); Monocytes % (Auto) 3.6 % (0.0-7.3); Platelet Count 302 K/mm3 (140-440); Red Blood Count 4.23 M/mm3 (3.65-5.03); Red Cell Distribution Width 16.8 % (13.2-15.2)
[2018-01-20 05:54] LABS: Bilirubin,Urine NEG (Negative); Blood,Urine LG (Negative); Color,Urine Red (Yellow); Protein,Urine <15 mg/dL mg/dL (Negative); RBC,Urine < 1.0 /HPF (0.0-6.0); Urobilinogen,Urine < 2.0 mg/dL (<2.0)
[2018-01-20 07:11] LABS: WBC,Urine < 1.0 /HPF (0.0-6.0)
--- NOTE | 2018-01-20 07:21 | Ultrasound Report ---
FINAL REPORT EXAM: US OB < = 14 WEEKS FETUS HISTORY: vaginal bleeding COMPARISONS: 01/16/2018 FINDINGS: Transabdominal grayscale first-trimester ultrasound Single living intrauterine with recorded cardiac activity of 163 beats per minute and crown-rump length of about 4.3 cm, which corresponds to estimated gestational age of 11 weeks 1 day. Normal appearing yolk sac. A small thin perigestational hemorrhage may be present involving less than 50 percent of the gestational sac surface area. The cervix appears closed and measures around 4 cm in length. Evolving right corpus luteal cyst measures up to 1.7 cm on today's exam. The ovaries are otherwise sonographically unremarkable and measure 3.8 x 2.5 x 1.7 cm on the right and 2.9 x 2.1 x 1.4 cm on the left. IMPRESSION: Single living intrauterine with small perigestational hemorrhage involving less than 50 percent of the gestational sac surface area and concordant dating with prior, as detailed above.
--- NOTE | 2018-01-20 07:22 | Ultrasound Report ---
FINAL REPORT EXAM: US OB TRANSVAGINAL HISTORY: vaginal bleeding COMPARISONS: 01/16/2018 FINDINGS: Transvaginal grayscale, color Doppler and M-mode first-trimester ultrasound Single living intrauterine with recorded cardiac activity of 163 beats per minute and crown-rump length of about 4.3 cm, which corresponds to estimated gestational age of 11 weeks 1 day. Normal appearing yolk sac. A small thin perigestational hemorrhage may be present involving less than 50 percent of the gestational sac surface area. The cervix appears closed and measures around 4 cm in length. Evolving right corpus luteal cyst measures up to 1.7 cm on today's exam. The ovaries are otherwise sonographically unremarkable and measure 3.8 x 2.5 x 1.7 cm on the right and 2.9 x 2.1 x 1.4 cm on the left. IMPRESSION: Single living intrauterine with small perigestational hemorrhage involving less than 50 percent of the gestational sac surface area and concordant dating with prior, as detailed above.
[2018-01-20 10:17] VITALS: BP 119/86
--- NOTE | 2018-01-20 11:20 | Emergency Department Report ---
ED Female HPI - General Chief complaint: Vaginal Bleeding Stated complaint: 3 MONTHS BLEEDING Time Seen by Provider: 01/20/18 11:15 Source: patient Mode of arrival: Ambulatory Limitations: No Limitations - History of Present Illness Initial comments: Patient here with her significant other reports that she is 12 weeks and she goes to light cycle she says she woke up this morning with some abdominal cramps and some vaginal bleeding but she is not bleeding at present. She said cramps was a 6 out of 10 which she is not having at present. Denies any nausea or vomiting. Denies any urinary burning frequency or urgency. Patient says she's had previous ultrasound and it was normal. MD Complaint: vaginal bleeding, pelvic pain -: This morning Location: suprapubic Radiation: non-radiating Severity: moderate Severity scale (0 -10): 6 Quality: cramping Consistency: intermittent Improves with: none Worsens with: none Are you Now?: Yes (12 weeks) Associated Symptoms: vaginal bleeding, abdominal pain. denies: vaginal discharge, nausea/vomiting, fever/chills, headaches, loss of appetite, dysuria, hematuria, rash, seizure, shortness of breath, syncope, weakness - Related Data Sexually active: Yes Home Medications Medication Instructions Recorded Confirmed Last Taken Pnv No.95/Ferrous Fum/Folic AC 1 tab PO DAILY 07/10/16 02/19/17 02/18/17 17:00 [ Caplet] Previous Rx's Medication Instructions Recorded Last Taken Type Ondansetron [Zofran TAB] 4 mg PO Q8HR PRN #14 tablet 07/10/16 02/18/17 17:00 Rx Pnv No.95/Ferrous Fum/Folic AC 1 each PO QDAY #31 tablet 07/10/16 02/18/17 17: 00 Rx [Prenavite Tablet] Acetaminophen/Codeine [Tylenol 1 tab PO Q6H PRN #10 tab 07/18/16 Unknown Rx /Codeine # 3 tab] Penicillin Vk [Veetids TAB] 250 mg PO QID #40 tablet 07/18/16 Unknown Rx Cephalexin [Keflex] 500 mg PO Q8HR 5 Days #15 cap 10/28/17 Unknown Rx Ibuprofen [Motrin] 600 mg PO Q8H PRN 5 Days #15 tablet 10/28/17 Unknown Rx Metoclopramide [Reglan] 10 mg PO TID PRN #20 tab 01/16/18 Unknown Rx Allergies Allergy/AdvReac Type Severity Reaction Status Date / Time No Known Allergies Allergy Verified 02/04/16 12:27 ED Review of Systems ROS: Stated complaint: 3 MONTHS BLEEDING Other details as noted in HPI Comment: All other systems reviewed and negative Constitutional: no symptoms reported Respiratory: no symptoms reported Cardiovascular: denies: chest pain, palpitations, dyspnea on exertion, edema, syncope, paroxysmal nocturnal dyspnea Gastrointestinal: abdominal pain. denies: nausea, vomiting, diarrhea, constipation, hematemesis, melena, hematochezia Genitourinary: other (vaginal bleed at 12 weeks ). denies: dysuria, hematuria Skin: denies: rash Neurological: denies: headache ED Past Medical Hx - Past Medical History Previous Medical History?: No Hx Hypertension: No Hx Congestive Heart Failure: No Hx Diabetes: No Hx Deep Vein Thrombosis: No Hx Renal Disease: No Hx Sickle Cell Disease: No Hx Seizures: No Hx Asthma: No Hx COPD: No Hx HIV: No - Surgical History Past Surgical History?: Yes Additional Surgical History: D&C - Family History Family history: no significant - Social History Smoking Status: Current Every Day Smoker Substance Use Type: None - Medications Home Medications: Home Medications Medication Instructions Recorded Confirmed Last Taken Type Ondansetron [Zofran TAB] 4 mg PO Q8HR PRN #14 tablet 07/10/16 02/19/17 02/18/17 17:00 Rx Pnv No.95/Ferrous Fum/Folic AC 1 tab PO DAILY 07/10/16 02/19/17 02/18/17 17:00 History [ Caplet] Pnv No.95/Ferrous Fum/Folic AC 1 each PO QDAY #31 tablet 07/10/16 02/19/1702/18 17:00 Rx [Prenavite Tablet] Acetaminophen/Codeine [Tylenol 1 tab PO Q6H PRN #10 tab 07/18/16 02/19/17 Unknown Rx /Codeine # 3 tab] Penicillin Vk [Veetids TAB] 250 mg PO QID #40 tablet 07/18/16 02/19/17 Unknown Rx Cephalexin [Keflex] 500 mg PO Q8HR 5 Days #15 cap 10/28/17 Unknown Rx Ibuprofen [Motrin] 600 mg PO Q8H PRN 5 Days #15 tablet 10/28/17 Unknown Rx Metoclopramide [Reglan] 10 mg PO TID PRN #20 tab 01/16/18 Unknown Rx ED Physical Exam - General Limitations: No Limitations General appearance: alert, in no apparent distress - Head Head exam: Present: atraumatic, normocephalic, normal inspection - Eye Eye exam: Present: normal appearance, PERRL, EOMI Pupils: Present: normal accommodation - ENT ENT exam: Present: normal exam, normal orophraynx, mucous membranes moist - Neck Neck exam: Present: normal inspection, full ROM, other (no C-spine tenderness). Absent: tenderness, meningismus, lymphadenopathy, thyromegaly - Respiratory Respiratory exam: Present: normal lung sounds bilaterally. Absent: respiratory distress, chest wall tenderness - Cardiovascular Cardiovascular Exam: Present: normal rhythm, tachycardia, normal heart sounds. Absent: systolic murmur, diastolic murmur - GI/Abdominal GI/Abdominal exam: Present: soft, normal bowel sounds. Absent: distended, tenderness, guarding, rebound, rigid, organomegaly, mass, bruit, pulsatile mass , hernia - External exam: Present: other ( refused pelvic exam.) - Extremities Exam Extremities exam: Present: normal inspection, full ROM, normal capillary refill , other (no no clubbing, cyanosis or edema. +2 pulses all extremities and no neurovascular compromise). Absent: tenderness, pedal edema, joint swelling, calf tenderness - Back Exam Back exam: Present: normal inspection, full ROM, other (ambulates without any difficulties). Absent: tenderness, CVA tenderness (R), CVA tenderness (L), muscle spasm, paraspinal tenderness, vertebral tenderness, rash noted - Neurological Exam Neurological exam: Present: alert, oriented X3, normal gait - Psychiatric Psychiatric exam: Present: normal affect, normal mood - Skin Skin exam: Present: warm, dry, intact, normal color. Absent: rash ED Course Vital Signs 01/20/18 01/20/18 04:55 10:10 Temperature 97.9 F Pulse Rate 112 H 92 H Respiratory 16 Rate Blood Pressure 130/90 119/86 O2 Sat by Pulse 97 100 Oximetry - Reevaluation(s) Reevaluation #1: 01/20/18 11:19 Patient here reports that she was having some vaginal bleeding this morning and she is 12 weeks and goes below cycle. She states she was also having abdominal cramping which has since resolved. I discussed with patient her ultrasound results and told her that she has small juan luis-gestational hemorrhage involving less than 50% of the gestational sac surface area and concordant with dating with prior ultrasound on the 13 did not show this. Patient does not want away and she refused her pelvic or vaginal exam and also refused for me to call [facility] for consult. Patient says she cannot wait anymore and she left without signing AMA even though she agreed that she would find it. ED Medical Decision Making - Lab Data Result diagrams: 01/20/18 05:02 Lab Results 01/20/18 01/20/18 01/20/18 Range/Units 05:01 05:02 05:02 WBC 10.3 (4.5-11.0) K/mm3 RBC 4.23 (3.65-5.03) M/mm3 Hgb 12.3 (10.1-14.3) gm/dl Hct 36.8 (30.3-42.9) % MCV 87 (79-97) fl MCH 29 (28-32) pg MCHC 34 (30-34) % RDW 16.8 H (13.2-15.2) % Plt Count 302 (140-440) K/mm3 Lymph % (Auto) 28.2 (13.4-35.0) % [place] % (Auto) 3.6 (0.0-7.3) % Eos % (Auto) 0.2 (0.0-4.3) % Baso % (Auto) 0.8 (0.0-1.8) % Lymph # 2.9 (1.2-5.4) K/mm3 [place] # 0.4 (0.0-0.8) K/mm3 Eos # 0.0 (0.0-0.4) K/mm3 Baso # 0.1 (0.0-0.1) K/mm3 Seg Neutrophils % 67.2 (40.0-70.0) % Seg Neutrophils # 6.9 (1.8-7.7) K/mm3 HCG, Quant 38523 H (0-4) mIU/mL Urine Color Red (Yellow) Urine Turbidity Clear (Clear) Urine pH 7.0 (5.0-7.0) Ur Specific [place] 1.001 L (1.003-1.030) Urine Protein <15 mg/dl (Negative) mg/dL Urine Glucose (UA) Neg (Negative) mg/dL Urine Ketones Neg (Negative) mg/dL Urine Blood Lg (Negative) Urine Nitrite Neg (Negative) Urine Bilirubin Neg (Negative) Urine Urobilinogen < 2.0 (<2.0) mg/dL Ur Leukocyte Esterase Neg (Negative) Urine WBC (Auto) < 1.0 (0.0-6.0) /HPF Urine RBC (Auto) < 1.0 (0.0-6.0) /HPF Blood Type Antibody Screen 01/20/18 Range/Units 05:02 WBC (4.5-11.0) K/mm3 RBC (3.65-5.03) M/mm3 Hgb (10.1-14.3) gm/dl Hct (30.3-42.9) % MCV (79-97) fl MCH (28-32) pg MCHC (30-34) % RDW (13.2-15.2) % Plt Count (140-440) K/mm3 Lymph % (Auto) (13.4-35.0) % [place] % (Auto) (0.0-7.3) % Eos % (Auto) (0.0-4.3) % Baso % (Auto) (0.0-1.8) % Lymph # (1.2-5.4) K/mm3 [place] # (0.0-0.8) K/mm3 Eos # (0.0-0.4) K/mm3 Baso # (0.0-0.1) K/mm3 Seg Neutrophils % (40.0-70.0) % Seg Neutrophils # (1.8-7.7) K/mm3 HCG, Quant (0-4) mIU/mL Urine Color (Yellow) Urine Turbidity (Clear) Urine pH (5.0-7.0) Ur Specific [place] (1.003-1.030) Urine Protein (Negative) mg/dL Urine Glucose (UA) (Negative) mg/dL Urine Ketones (Negative) mg/dL Urine Blood (Negative) Urine Nitrite (Negative) Urine Bilirubin (Negative) Urine Urobilinogen (<2.0) mg/dL Ur Leukocyte Esterase (Negative) Urine WBC (Auto) (0.0-6.0) /HPF Urine RBC (Auto) (0.0-6.0) /HPF Blood Type O NEGATIVE Antibody Screen Negative - Radiology Data Ultrasound report OB report patient is a 11 week gestation. heartbeat is a 163 bpm. Patient with right corpus Parveen severest otherwise ovaries are normal. Patient was single living intrauterine with small gestational hemorrhage involving less than 50% of the gestational sac surface area and concordant dated with prior. She was here on 01/16/2018 and there was no mention of bleeding on that report. - Medical Decision Making ED course: I reports that she is at 12 weeks and she had vaginal bleeding when she woke up this morning along with some episodic abdominal cramping. She says she is not bleeding now. Records reviewed and patient was here on 01/16/2018 and had ultrasound done which show IUP without any other abnormalities. She did have a corpus in the field status. Today ultrasound show that patient has IUP with positive heartbeat and also per gestational hemorrhage involving less than 50% of the gestational sac. I discussed this with patient in detail and I told her that this is a threatened miscarriage and that her ultrasound from previous did not show juan luis-gestational bleeding. Patient said that she doesn't want to wait and she also less likely and will see her doctor in Monday as she has an appointment. Discussed with her that there is a possibility that she could lose the baby and that I need to call [facility] to let them know and get further instructions. She refused to stay as also she refused to have a pelvic exam done. Patient eloped from the emergency room without signing AMA. CBC, urinalysis is stable. Critical care attestation.: If time is entered above; I have spent that time in minutes in the direct care of this critically ill patient, excluding procedure time. ED Disposition Clinical Impression: Vaginal bleeding affecting early , Threatened in early , Abdominal pain during in first trimester, Corpus luteum cyst, Refusal of care by patient Disposition: Z-07 ELOPED Is pt being admited?: No Does the pt Need Aspirin: No Condition: Stable Forms: AMA Form
== END 2018-01-20 11:33 | disposition left against medical advice (07) ==
LOC: ED 04:48
DX: O20.0 Threatened abortion (principal); O99.331 Smoking (tobacco) complicating pregnancy, first trimester; Z3A.11 11 weeks gestation of pregnancy
CPT/HCPCS: 36415; 76801; 76817; 81001; 84702; 85025; 86850; 86900; 86901; 99284

== ENCOUNTER 2018-05-22 14:38 | Outpatient (CLI) | payer MEDICAID | END 2018-05-22 16:05 | disposition home or self-care (01) | LOC: TRG 14:38 → LABHHL 14:38 → TRG 15:53 → LABHHL 15:53 → EDSTATUS 15:55 → TRG 16:05 | PROVIDERS: ATTEND Advanced Practice Midwife | DX: Z31.82 Encounter for Rh incompatibility status (principal) | CPT/HCPCS: 86850; 86900; 86901; 96372; J2790 ==

== ENCOUNTER 2021-12-24 20:41 | Outpatient (CLI) | payer MEDICAID | END 2021-12-24 23:04 | disposition home or self-care (01) | LOC: TRG 20:41 → APU 20:43 → TRG 23:04 | PROVIDERS: ATTEND Obstetrics & Gynecology | DX: O26.893 Other specified pregnancy related conditions, third trimester (principal); O99.013 Anemia complicating pregnancy, third trimester; D64.9 Anemia, unspecified; Z67.41 Type O blood, Rh negative; Z3A.00 Weeks of gestation of pregnancy not specified | CPT/HCPCS: 85461; 86850; 86900; 86901; 96372; J2790 ==

== ENCOUNTER 2022-01-12 13:35 | Outpatient (CLI) | payer MEDICAID ==
[2022-01-12] MEDS ORDERED: LACTATED RINGERS 1,000 ML IV ONE (14:11)
[2022-01-12] MEDS ORDERED: TERBUTALINE 1 MG/1 ML INJ SUB-Q ONE (15:06)
[2022-01-12 15:14] LABS: Cocaine Screen,Urine Negative; Methadone Screen,Urine Negative; Opiate Screen,Urine Negative
[2022-01-12 16:12] LABS: Bacteria,Urine 2+ /HPF (Negative); Granular Casts,Urine 4 /LPF; Hyaline Casts,Urine 15 /LPF; Mucus,Urine FEW /HPF
[2022-01-12 16:25] VITALS: BP 114/61
[2022-01-12 16:30] LABS: Amphetamine Screen,Urine Positive; Benzodiazepines Screen,Urine Positive; Cannabinoid Screen,Urine Positive
[2022-01-12 17:19] LABS: Bilirubin,Urine Negative (Negative); Color,Urine Yellow (Yellow)
[2022-01-12 17:20] LABS: Blood,Urine Negative (Negative)
== END 2022-01-12 16:45 | disposition home or self-care (01) ==
LOC: TRG 13:35 → APU 13:37 → TRG 16:45
PROVIDERS: ATTEND Obstetrics & Gynecology
DX: O62.9 Abnormality of forces of labor, unspecified (principal); O99.333 Smoking (tobacco) complicating pregnancy, third trimester; Z3A.31 31 weeks gestation of pregnancy
CPT/HCPCS: 59025; 80307; 81001; 87076; 87086; 87186; 96361; 96365; 96372; 99406; J0690; J3105; J7120; 96360